=== PATIENT | male | born 1975 | race American Indian/Alaskan Native ===

== ENCOUNTER 2020-04-03 11:19 | Emergency (ER) | payer MEDICARE ==
[2020-04-03] MEDS ORDERED: ACETAMINOPHEN 325 MG TAB PO ONE (11:28)
[2020-04-03] MEDS ORDERED: ACETAMINOPHEN 325 MG TAB ONE (11:28)
--- NOTE | 2020-04-03 11:54 | XRay Report ---
Right shoulder-3 views INDICATION: Fall, pain. COMPARISON: None. IMPRESSION: There is a comminuted fracture through the scapula involving the scapular neck. No clear intra-articular extension. There is surrounding soft tissue swelling. No significant DJD. Visualize d right lung is clear. Signer Name: Gabe Champion MD Signed: 04/03/2020 11:49 AM Workstation Name: [id number]
[2020-04-03] MEDS ORDERED: ONDANSETRON 4 MG/2 ML INJ IV ONE (12:50)
[2020-04-03] MEDS ORDERED: SODIUM CHLORIDE 0.9% 1000 ML 1,000 ML IV ONE (12:50)
[2020-04-03] MEDS ORDERED: MORPHINE 4 MG/1 ML INJ IV ONE (12:50)
[2020-04-03] MEDS ORDERED: ONDANSETRON 4 MG/2 ML INJ ONE (12:54)
[2020-04-03] MEDS ORDERED: MORPHINE 4 MG/1 ML INJ ONE (12:54)
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
--- NOTE | 2020-04-03 13:36 | Cat Scan Report ---
CT CHEST WITHOUT CONTRAST INDICATION / CLINICAL INFORMATION: MAIN. TECHNIQUE: Axial CT images were obtained through the chest without contrast. All CT scans at this location are p erformed using CT dose reduction for ALARA by means of automated exposure control. COMPARISON: 01/12/2010 radiograph chest FINDINGS: HEART: Extensive coronary artery calcific atherosclerosis. Extensive aortic valve calcification. Mild ly enlarged heart. THORACIC AORTA: No significant abnormality. MEDIASTINUM and MILAD: No significant abnormality. LUNGS/AIRWAYS: No acute air space or interstitial disease. PLEURA: No significant pleural effusion. No pneumothorax. UPPER ABDOMEN: Atrophic kidneys with scattered punctate calcifications and mild right hydronephrosis. Cholelithiasis. SKELETAL SYSTEM: Extensively comminuted right scapular fracture with approximately 1 cm of anterior d isplacement and 2 cm of superior displacement of the mid-lateral scapula. No extension into the gleno id fossa. Fracture extends into the scapular spine without significant placement. No significant AC j oint separation. Clavicle is intact. No definite rib fractures. Glenohumeral joint intact without jhonny dence of dislocation or fracture. Possible mild remote left lateral rib deformities. ADDITIONAL FINDINGS: Mild edema and hematoma adjacent to the right scapula. No significant glenohumer al effusion. IMPRESSION: 1. Extensively comminuted acute right scapular fracture with mild displacement, as detailed above. No extension into the glenoid or significant glenohumeral abnormality. 2. Extensive coronary artery calcific atherosclerosis and extensive aortic valve calcification with m ildly enlarged heart. Consider follow up with cardiology is not already performed. 3. Atrophic kidneys with mild right hydronephrosis. 4. Cholelithiasis. Signer Name: Vasu Shearer MD Signed: 04/03/2020 1:31 PM Workstation Name: [id number]
[2020-04-03 17:11] VITALS: BP 182/89
== END 2020-04-03 15:15 | disposition home or self-care (01) ==
LOC: ED 11:19
DX: S42.101A Fracture of unspecified part of scapula, right shoulder, initial encounter for closed fracture (principal); Z98.890 Other specified postprocedural states; V89.9XXA Person injured in unspecified vehicle accident, initial encounter; Y93.89 Activity, other specified; Y92.410 Unspecified street and highway as the place of occurrence of the external cause; Y99.8 Other external cause status
CPT/HCPCS: 29105; 71250; 73030; 96361; 96374; 96375; 99284; J2270; J2405; J7030

== ENCOUNTER 2020-05-12 09:53 | Outpatient (CLI) | payer MEDICARE ==
--- NOTE | 2020-05-12 11:06 | XRay Report ---
RIGHT SHOULDER 3 VIEWS INDICATION / CLINICAL INFORMATION: RIGHT SHOULDER PAIN , right scapula fracture COMPARISON: 04/03/2020 FINDINGS: BONES / JOINT(S): Fracture of the scapula is again noted. There appears to been some interval healing but is not healed. No new fractures are seen. Vascular stent is noted right subclavian vessel. There are surgical elvin noted in the right arm presumably related to dialysis graft or fistula placemen t No significant arthritis. SOFT TISSUES: No significant abnormality. ADDITIONAL FINDINGS: None. Signer Name: Cirilo Lewis MD Signed: 05/12/2020 11:01 AM Workstation Name: [id number]
== END 2020-05-12 09:54 | disposition home or self-care (01) ==
LOC: XRAY 09:53
PROVIDERS: ATTEND Orthopaedic Surgery
DX: S42.101A Fracture of unspecified part of scapula, right shoulder, initial encounter for closed fracture (principal); M25.511 Pain in right shoulder; X58.XXXD Exposure to other specified factors, subsequent encounter; X58.XXXA Exposure to other specified factors, initial encounter; Y93.89 Activity, other specified; Y92.89 Other specified places as the place of occurrence of the external cause; Y99.8 Other external cause status

== ENCOUNTER 2021-05-12 22:26 | Emergency (ER) | payer MEDICARE ==
--- NOTE | 2021-05-12 23:34 | Event Note ---
ED Screening Note Date of service: 05/12/21 Time: 23:31 ED Screening Note: 46-year-old male presents to the ER today with complaints of right-sided chest pain. Onset 1.5 weeks ago. He describes the pain as achy, and seems to be worse when he coughs and mildly worsened when he takes a deep breath. He reports shortness of breath on exertion He denies any fever or chills, nausea or vomiting, abdominal pain, lower extremity swelling or calf pain. Past medical history significant for renal transplant in 2009. He states that he only has 1 functioning kidney and that is the replacement kidney. Otherwise denies any other significant past medical history He did get the [employer] COVID-19 vaccine in December. He has not taken a COVID-19 test in the past 1.5 weeks. This initial assessment/diagnostic orders/clinical plan/treatment(s) is/are subject to change based on patients health status, clinical progression and re- assessment by fellow clinical providers in the ED. Further treatment and workup at subsequent clinical providers discretion. Patient/guardian urged not to elope from the ED as their condition may be serious if not clinically assessed and managed. Initial orders include: Chest x-ray/lab
--- NOTE | 2021-05-13 00:09 | XRay Report ---
CHEST 2 VIEWS INDICATION / CLINICAL INFORMATION: Right sided chest pain/cough. COMPARISON: None available. FINDINGS: SUPPORT DEVICES: None. HEART / MEDIASTINUM: No significant abnormality. LUNGS / PLEURA: No significant pulmonary or pleural abnormality. No pneumothorax. ADDITIONAL FINDINGS: Surgical clips are seen in the axillary regions bilaterally. Vascular stent righ t subclavian. IMPRESSION: 1. No acute findings. Signer Name: Alvaro Thomas MD Signed: 05/13/2021 12:05 AM Workstation Name: [id number]
[2021-05-13 00:50] LABS: Basophils % (Auto) 0.8 % (0.0-1.8); Eosinophils % (Auto) 1.2 % (0.0-4.3); Hematocrit 50.7 % (35.5-45.6); Hemoglobin 15.7 gm/dl (11.8-15.2); Lymphocytes # (Auto) 1.3 K/mm3 (1.2-5.4); Mean Corpuscular HGB Conc 31 % (32-34); Mean Corpuscular Volume 90 fl (84-94); Monocytes # (Auto) 0.4 K/mm3 (0.0-0.8); Monocytes % (Auto) 8.8 % (0.0-7.3); Platelet Count 239 K/mm3 (140-440); Red Blood Count 5.62 M/mm3 (3.65-5.03); Red Cell Distribution Width 15.4 % (13.2-15.2)
[2021-05-13 00:59] LABS: INR 0.88 (0.87-1.13)
--- NOTE | 2021-05-13 01:03 | Emergency Department Report ---
HPI - General Chief Complaint: Chest Pain Time Seen by Provider: 05/12/21 23:48 - HPI HPI: MSE 5 The patient is a 46-year-old male present with a chief complaint of cough and congestion. The patient states for the past 2 weeks he has had cold symptoms which includes a cough productive of yellow sputum, ear ache and chest congestion. Patient states he has had right-sided chest pain whenever he coughs. Patient also admits to rhinorrhea. Patient admits to subjective fever and fatigue and occasional shortness of breath. Patient denies nausea or v omiting. Patient states she has been vaccinated against Covid receiving his second dose in December 2020. ED Past Medical Hx - Past Medical History Previous Medical History?: Yes Additional medical history: Lupus, status post renal transplant 2009 [facility] (Dr. Shields) - Surgical History Past Surgical History?: Yes Additional Surgical History: Kidney transplant 2009 - Family History Family history: no significant - Social History Smoking Status: Never Smoker Substance Use Type: Marijuana - Medications Home Medications: Home Medications Medication Instructions Recorded Confirmed Last Taken Type Ondansetron [Zofran Odt] 4 mg PO Q8HR PRN #20 tab.rapdis 04/03/20 Unknown Rx oxyCODONE /ACETAMINOPHEN [Percocet 1 tab PO Q6HR PRN #20 tablet 04/03/20 Unknown Rx 5/325] Albuterol Mdi (or & Nicu Only) 2 puff IH QID PRN #8.5 gram 05/13/21 Unknown Rx [ProAir HFA Inhaler] Azithromycin [Zithromax Z-JOCELYNN] 0 mg PO DAILY #6 tab 05/13/21 Unknown Rx Benzonatate [Tessalon Perles] 100 mg PO Q8HR #30 capsule 05/13/21 Unknown Rx ED Review of Systems ROS: Stated complaint: POSSIBLE COLD OR FLU AND CHEST PAIN X 2 WEEKS Other details as noted in HPI Constitutional: fever (Subjective) Eyes: denies: eye pain ENT: throat pain, congestion Respiratory: cough, shortness of breath Cardiovascular: denies: dyspnea on exertion Endocrine: no symptoms reported Gastrointestinal: other (Occasional loose stools). denies: nausea, vomiting Genitourinary: denies: dysuria Musculoskeletal: denies: back pain Neurological: denies: headache Physical Exam - Physical Exam Vital Signs: Vital Signs 05/12/21 22:42 Temperature 98.1 F Pulse Rate 84 Respiratory 14 Rate Blood Pressure 149/78 O2 Sat by Pulse 98 Oximetry Physical Exam: GENERAL: The patient is well-developed well-nourished male sitting on stretcher using phone not appearing to be in acute distress. [] HEENT: Normocephalic. Atraumatic. Extraocular motions are intact. Patient has moist mucous membranes. Left TM occluded by cerumen, right TM clear. Oropharynx clear NECK: Supple. Trachea midline CHEST/LUNGS: Clear to auscultation. There is no respiratory distress noted. HEART/CARDIOVASCULAR: Regular. There is no tachycardia. There is no gallop rub or murmur. ABDOMEN: Abdomen is soft, nontender. Patient has normal bowel sounds. There is no abdominal distention. SKIN: There is no rash. There is no edema. There is no diaphoresis. NEURO: The patient is awake, alert, and oriented. The patient is cooperative. The patient has no focal neurologic deficits. The patient has normal speech. GCS 15 MUSCULOSKELETAL: There is no evidence of acute injury. ED Course Vital Signs 05/12/21 22:42 Temperature 98.1 F Pulse Rate 84 Respiratory 14 Rate Blood Pressure 149/78 O2 Sat by Pulse 98 Oximetry ED Medical Decision Making - Lab Data Result diagrams: 05/13/21 00:21 05/13/21 00:21 Laboratory Tests 05/13/21 05/13/21 05/13/21 00:21 00:21 00:21 WBC 4.3 L RBC 5.62 H Hgb 15.7 H Hct 50.7 H MCV 90 MCH 28 MCHC 31 L RDW 15.4 H Plt Count 239 Lymph % (Auto) 30.0 [place] % (Auto) 8.8 H Eos % (Auto) 1.2 Baso % (Auto) 0.8 Lymph # (Auto) 1.3 [place] # (Auto) 0.4 Eos # (Auto) 0.0 Baso # (Auto) 0.0 Seg Neutrophils % 59.2 Seg Neutrophils # 2.5 PT 13.0 INR 0.88 Sodium 143 Potassium 4.8 Chloride 106.8 Carbon Dioxide 25 Anion Gap 16 BUN 17 Creatinine 1.2 Estimated GFR > 60 BUN/Creatinine Ratio 14 Glucose 86 Calcium 9.9 Total Bilirubin 0.30 AST 18 ALT 15 Alkaline Phosphatase 75 Troponin T < 0.010 Total Protein 7.1 Albumin 4.0 Albumin/Globulin Ratio 1.3 - Radiology Data Radiology results: report reviewed (Chest x-ray), image reviewed (Chest x-ray) interpreted by me: Chest x-ray-no definite focal infiltrates, no pneumothorax [facility] [address] [place] [address] XRay Report Signed Patient: ANUPAMA FERGUSON MR#: [id number] : 1975 Acct:[id number] Age/Sex: 46 / M ADM Date: 05/12/21 Loc: ED [facility]: Ordering Physician: MARIANELA JEAN BAPTISTE Date of Service: 05/12/21 Procedure(s): XR chest routine 2V Accession Number(s): [id number] cc: MARIANELA JEAN BAPTISTE Fluoro Time In Minutes: CHEST 2 VIEWS INDICATION / CLINICAL INFORMATION: Right sided chest pain/cough. COMPARISON: None available. FINDINGS: SUPPORT DEVICES: None. HEART / MEDIASTINUM: No significant abnormality. LUNGS / PLEURA: No significant pulmonary or pleural abnormality. No pneumothorax. ADDITIONAL FINDINGS: Surgical clips are seen in the axillary regions bilaterally. Vascular stent right subclavian. IMPRESSION: 1. No acute findings. Signer Name: Alvaro Thomas MD Signed: 05/13/2021 12:05 AM Workstation Name: [id number] Trans cribed By: CW Dictated By: SOLOMON THOMAS MD Electronically Authenticated By: SOLOMON THOMAS MD Signed Date/Time: 05/13/21 0005 DD/ 0004 TD/TT: Print Cancel - Differential Diagnosis Pneumonia, bronchitis, URI Critical care attestation.: If time is entered above; I have spent that time in minutes in the direct care of this critically ill patient, excluding procedure time. ED Disposition Clinical Impression: Cough, URI (upper respiratory infection) Disposition: 01 HOME / SELF CARE / HOMELESS Is pt being admited?: No Does the pt Need Aspirin: No Condition: Stable Instructions: Upper Respiratory Infection, Adult, [id number], Cough, Adult, [id number] Additional Instructions: Return to the emergency department should you develop worsening symptoms, inability to tolerate food or liquids, high fever or any other concerns Prescriptions: Albuterol Mdi (or & Nicu Only) [ProAir HFA Inhaler] 2 puff IH QID PRN #8.5 gram PRN Reason: Shortness Of Breath Benzonatate [Tessalon Perles] 100 mg PO Q8HR #30 capsule Azithromycin [Zithromax Z-JOCELYNN] 0 mg PO DAILY #6 tab Referrals: PRIMARY CARE, [Referring] - 3-5 Days Time of Disposition: 01:28
[2021-05-13 01:07] LABS: Alanine Aminotransferase 15 units/L (7-56); BUN/Creatinine Ratio 14; Blood Urea Nitrogen 17 mg/dL (9-20); Calcium 9.9 mg/dL (8.4-10.2); Hemolysis Index 7
[2021-05-13 02:29] VITALS: BP 133/72
--- NOTE | 2021-05-13 14:16 | Electrocardiograph Report ---
[facility] Test Date: 2021-05-12 Test Time: 22:48:55 Pat Name: ANUPAMA FERGUSON Department: Room: Gender: M [employer] Tooler: IJEOMA : 1975 Requested By: EMILY HARDY Order Number: [id number] Reading MD: Latrell Tabor Measurements Intervals [place] Rate: 77 P: 36 MN: 180 QRS: -3 QRSD: 93 T: -30 QT: 382 QTc: 434 Interpretive Statements Sinus rhythm LAE, consider biatrial enlargement Left ventricular hypertrophy Nonspecific T abnormalities, inferior leads No previous ECG available for comparison Electronically Signed On 05-13-2021 14:15:19 EDT by Latrell Tabor
== END 2021-05-13 02:12 | disposition home or self-care (01) ==
LOC: ED 22:26
DX: J06.9 Acute upper respiratory infection, unspecified (principal); R05.9 Cough, unspecified; F12.90 Cannabis use, unspecified, uncomplicated; R06.02 Shortness of breath
CPT/HCPCS: 36415; 71046; 80053; 84484; 85025; 85610; 87040; 93005; 99283

== ENCOUNTER 2022-04-12 12:37 | Emergency (ER) | payer MEDICARE ==
[2022-04-12 13:23] VITALS: BP 135/81
--- NOTE | 2022-04-12 13:47 | XRay Report ---
CHEST 2 VIEWS INDICATION / CLINICAL INFORMATION: congestion. COMPARISON: 05/12/2021 FINDINGS: SUPPORT DEVICES: None. HEART / MEDIASTINUM: No significant abnormality. LUNGS / PLEURA: No significant pulmonary or pleural abnormality. No pneumothorax. ADDITIONAL FINDINGS: Vascular stent is noted in the right upper chest. Surgical clips are noted in th e right axilla. IMPRESSION: 1. No acute findings. No significant change. Signer Name: Cirilo Lewis MD Signed: 04/12/2022 1:43 PM Workstation Name: [id number]
[2022-04-12] MEDS ORDERED: predniSONE 20 MG TAB PO ONE (13:50)
[2022-04-12] MEDS ORDERED: ACETAMINOPHEN W/CODEINE 300-30 MG TAB PO ONE (13:50)
[2022-04-12] MEDS ORDERED: BENZONATATE 100 MG CAP PO ONE (13:50)
--- NOTE | 2022-04-12 15:38 | Emergency Department Report ---
ED ENT HPI - General Chief complaint: Weakness Stated complaint: CONGESTION/WEAKNESS Time Seen by Provider: 04/12/22 13:47 Source: patient Mode of arrival: Ambulatory Limitations: No Limitations - History of Present Illness Initial comments: 47 yo black male with a pmh of Lupus and kidney transplant presents to ed for evaluation of 2 week history of cough, congestion and fatigue. He denies cp, sob, n/v, dizziness, and fever. MD complaint: other (cough, congestion, fatigue) -: Gradual, week(s) (2) Associated Symptoms: cough, rhinorrhea. denies: fever, gum swelling, toothache, pain with swallowing, sore throat, tinnitus, hearing loss, discharge from ear - Related Data Previous Rx's Medication Instructions Recorded Last Taken Type Ondansetron [Zofran Odt] 4 mg PO Q8HR PRN #20 tab.rapdis 04/03/20 Unknown Rx oxyCODONE /ACETAMINOPHEN [Percocet 1 tab PO Q6HR PRN #20 tablet 04/03/20 Unknown Rx 5/325] Albuterol Mdi (or & Nicu Only) 2 puff IH QID PRN #8.5 gram 05/13/21 Unknown Rx [ProAir HFA Inhaler] Azithromycin [Zithromax Z-JOCELYNN] 0 mg PO DAILY #6 tab 05/13/21 Unknown Rx Benzonatate [Tessalon Perles] 100 mg PO Q8HR #30 capsule 05/13/21 Unknown Rx Cyclobenzaprine [Flexeril] 10 mg PO TID PRN #10 tablet 05/13/21 Unknown Rx Benzonatate [Tessalon Perles] 100 mg PO Q8HR PRN #30 cap 04/12/22 Unknown Rx guaiFENesin/CODEINE [Robitussin AC] 10 ml PO TID PRN #120 ml 04/12/22 Unknown Rx predniSONE [Deltasone] 50 mg PO QDAY 5 Days #5 tab 04/12/22 Unknown Rx Allergies Allergy/AdvReac Type Severity Reaction Status Date / Time No Known Allergies Allergy Verified 04/12/22 13:24 ED Dental HPI - General Chief complaint: Weakness Stated complaint: CONGESTION/WEAKNESS Time Seen by Provider: 04/12/22 13:47 Source: patient Mode of arrival: Ambulatory Limitations: No Limitations - Related Data Previous Rx's Medication Instructions Recorded Last Taken Type Ondansetron [Zofran Odt] 4 mg PO Q8HR PRN #20 tab.rapdis 04/03/20 Unknown Rx oxyCODONE /ACETAMINOPHEN [Percocet 1 tab PO Q6HR PRN #20 tablet 04/03/20 Unknown Rx 5/325] Albuterol Mdi (or & Nicu Only) 2 puff IH QID PRN #8.5 gram 05/13/21 Unknown Rx [ProAir HFA Inhaler] Azithromycin [Zithromax Z-JOCELYNN] 0 mg PO DAILY #6 tab 05/13/21 Unknown Rx Benzonatate [Tessalon Perles] 100 mg PO Q8HR #30 capsule 05/13/21 Unknown Rx Cyclobenzaprine [Flexeril] 10 mg PO TID PRN #10 tablet 05/13/21 Unknown Rx Benzonatate [Tessalon Perles] 100 mg PO Q8HR PRN #30 cap 04/12/22 Unknown Rx guaiFENesin/CODEINE [Robitussin AC] 10 ml PO TID PRN #120 ml 04/12/22 Unknown Rx predniSONE [Deltasone] 50 mg PO QDAY 5 Days #5 tab 04/12/22 Unknown Rx Allergies Allergy/AdvReac Type Severity Reaction Status Date / Time No Known Allergies Allergy Verified 04/12/22 13:24 ED Review of Systems ROS: Stated complaint: CONGESTION/WEAKNESS Other details as noted in HPI Comment: All other systems reviewed and negative Constitutional: weakness. denies: chills, fever, malaise Eyes: denies: vision change ENT: congestion Respiratory: cough. denies: shortness of breath, SOB with exertion, SOB at rest, stridor, wheezing Cardiovascular: denies: chest pain, palpitations Gastrointestinal: denies: abdominal pain, nausea, vomiting Musculoskeletal: denies: back pain Skin: denies: rash, lesions Neurological: weakness. denies: headache ED Past Medical Hx - Past Medical History Previous Medical History?: Yes Additional medical history: Lupus, status post renal transplant 2009 [facility] (Dr. Shields) - Surgical History Additional Surgical History: Kidney transplant 2009 - Social History Smoking Status: Never Smoker Substance Use Type: Marijuana - Medications Home Medications: Home Medications Medication Instructions Recorded Confirmed Last Taken Type Ondansetron [Zofran Odt] 4 mg PO Q8HR PRN #20 tab.rapdis 04/03/20 Unknown Rx oxyCODONE /ACETAMINOPHEN [Percocet 1 tab PO Q6HR PRN #20 tablet 04/03/20 Unknown Rx 5/325] Albuterol Mdi (or & Nicu Only) 2 puff IH QID PRN #8.5 gram 05/13/21 Unknown Rx [ProAir HFA Inhaler] Azithromycin [Zithromax Z-JOCELYNN] 0 mg PO DAILY #6 tab 05/13/21 Unknown Rx Benzonatate [Tessalon Perles] 100 mg PO Q8HR #30 capsule 05/13/21 Unknown Rx Cyclobenzaprine [Flexeril] 10 mg PO TID PRN #10 tablet 05/13/21 Unknown Rx Benzonatate [Tessalon Perles] 100 mg PO Q8HR PRN #30 cap 04/12/22 Unknown Rx guaiFENesin/CODEINE [Robitussin AC] 10 ml PO TID PRN #120 ml 04/12/22 Unknown Rx predniSONE [Deltasone] 50 mg PO QDAY 5 Days #5 tab 04/12/22 Unknown Rx ED Physical Exam - General Limitations: No Limitations General appearance: alert, in no apparent distress - Head Head exam: Present: atraumatic, normocephalic - Eye Eye exam: Present: normal appearance. Absent: conjunctival injection, periorbital swelling, periorbital tenderness - ENT ENT exam: Absent: normal exam (bilateral nasal mucosal edema and turbinate swelling. ), normal orophraynx (erythema noted to posterior oropharnyx. ) - Neck Neck exam: Present: normal inspection. Absent: tenderness, lymphadenopathy - Respiratory Respiratory exam: Present: normal lung sounds bilaterally. Absent: respiratory distress, wheezes, rales, rhonchi, stridor, chest wall tenderness - Cardiovascular Cardiovascular Exam: Present: regular rate, normal heart sounds - GI/Abdominal GI/Abdominal exam: Present: soft, normal bowel sounds. Absent: distended, tenderness, guarding, rebound, rigid - Extremities Exam Extremities exam: Present: normal inspection, full ROM, normal capillary refill. Absent: tenderness, pedal edema, joint swelling, calf tenderness - Back Exam Back exam: Present: normal inspection, full ROM. Absent: tenderness, CVA tenderness (R), CVA tenderness (L), vertebral tenderness - Neurological Exam Neurological exam: Present: alert, oriented X3, normal gait - Psychiatric Psychiatric exam: Present: normal affect, normal mood - Skin Skin exam: Present: warm, dry, intact, normal color ED Course Vital Signs 04/12/22 04/12/22 13:21 14:07 Temperature 98.6 F Pulse Rate 99 H Respiratory 14 14 Rate Blood Pressure 135/81 [Left] O2 Sat by Pulse 99 99 Oximetry ED Medical Decision Making - Medical Decision Making 47 yo black male with a pmh of Lupus and kidney transplant presents to ed for evaluation of 2 week history of cough, congestion and fatigue. He denies cp, sob, n/v, dizziness, and fever. Physical exam and workup unremarkable. Patient will be discharged home with prednisone, bromfed, and tessalon perles and advised to follow up with pcp if no improvement or worsening symptoms and return to ed as needed. He verbalizes understanding of and agreement with plan of care. Critical care attestation.: If time is entered above; I have spent that time in minutes in the direct care of this critically ill patient, excluding procedure time. ED Disposition Clinical Impression: URI with cough and congestion Disposition: 01 HOME / SELF CARE / HOMELESS Is pt being admited?: No Does the pt Need Aspirin: No Condition: Stable Instructions: Cough, Adult, [id number], Upper Respiratory Infection, Adult, [id number] Additional Instructions: Take medications as prescribed. Follow-up with your primary care provider for further evaluation and management. Return to the emergency department as needed. Prescriptions: predniSONE [Deltasone] 50 mg PO QDAY 5 Days #5 tab guaiFENesin/CODEINE [Robitussin AC] 10 ml PO TID PRN #120 ml PRN Reason: Cough Benzonatate [Tessalon Perles] 100 mg PO Q8HR PRN #30 cap PRN Reason: Cough Referrals: HILARIO ADRIAN MD [Staff Physician] - 3-5 Days Time of Disposition: 15:28
== END 2022-04-12 16:22 | disposition home or self-care (01) ==
LOC: ED 12:37
DX: J06.9 Acute upper respiratory infection, unspecified (principal); Z20.822 Contact with and (suspected) exposure to COVID-19; F12.90 Cannabis use, unspecified, uncomplicated; Z98.890 Other specified postprocedural states; Z79.899 Other long term (current) drug therapy
CPT/HCPCS: 71046; 99283; U0003